=== PATIENT | male | born 1945 | race Asian ===

== ENCOUNTER 2018-09-17 10:51 | Emergency (ER) | payer MEDICAID ==
[~2018-09-17] VITALS: Ht 180.3 cm; Wt 86.2 kg
[2018-09-17 10:56] VITALS: Ht 180.3 cm; Wt 86.2 kg
[2018-09-17 11:41] LABS: BASOPHIL % 0.6 % (0-2); PLATELET COUNT 188 x10^3mcL (130-400); RED CELL DISTRIBUTION WIDTH 13.4 % (11.5-14.5)
[2018-09-17 11:52] LABS: CALCIUM 9.2 mg/dL (8.5-10.1); CARBON DIOXIDE 25.2 mmol/L (21-32); CHLORIDE SERUM 108 mmol/L (98-107); GFR1 > 60 mL/min; GLUCOSE SERUM 108 mg/dL (74-106); POTASSIUM SERUM 4.1 mmol/L (3.5-5.1); SODIUM SERUM 144 mmol/L (136-145)
[2018-09-17 11:56] LABS: ALBUMIN 3.7 g/dL (3.4-5.0); ALKALINE PHOSPHATASE 78 U/L (46-116); ALT/SGPT 25 U/L (16-63); AST/SGOT 13 U/L (15-37); BILIRUBIN TOTAL 0.81 mg/dL (0.20-1.00); TOTAL PROTEIN, SERUM 6.9 g/dL (6.4-8.2)
[2018-09-17 12:48] VITALS: BP 146/82
== END 2018-09-17 12:49 | disposition short-term general hospital (02) ==
LOC: EDSEX 10:51 → ED 10:51
PROVIDERS: Emergency Medicine
DX: R29.810 Facial weakness (principal); Z98.890 Other specified postprocedural states
CPT/HCPCS: 36415; Q0092